=== PATIENT | female | born 1950 | race Caucasian/White ===

== ENCOUNTER → 2019-07-10 11:04 | Outpatient (CLI) | payer MEDICARE, MEDICAID, SELFPAY ==
--- NOTE | 2019-07-10 | DI.MRI.S_ITS ---
PROCEDURE: MR HIP LT WO CON INDICATIONS: Pain in left hip TECHNIQUE: Noncontrast coronal T1 spin echo and STIR through the bony pelvis. Coronal and axial T2 fast spin echo with fat saturation, sagittal T1 spin echo, and oblique axial T2 fast spin echo with fat saturation through the hip. COMPARISON: [facility] Outside Film, RG, PELVIS W/LAT HIP LT, 01/24/2019, 9:09. FINDINGS: Image quality: Diagnostic. Bones and joints: There is no acute fracture, dislocation, suspicious osseous lesion, or evidence to suggest avascular necrosis involving the left hip. The alpha angle of the left femoral head measures less than 55?. There are moderate to severe degenerative changes of the left hip with prominent thinning of the hyaline articular cartilage along the superior margin of the joint space and multiple moderate to large chronic appearing full-thickness cartilaginous defects of the superior acetabulum and superior femoral head. Underlying degenerative/reactive marrow edema is present with areas of degenerative cystic change noted within the superior acetabulum. There is a large left hip joint effusion with mild associated synovial thickening/hypertrophy. The remainder of the imaged bony structures of the pelvis demonstrate no acute fractures or suspicious osseous lesions. Mild to moderate degenerative changes involving other pelvic drains are present. Labrum: Evaluation of the left acetabular labrum is suboptimal without intra-articular contrast. However, there appears to be degenerative superior labral tearing. No large paralabral cysts are evident. Tendons and ligaments: The ligamentum teres appears to be torn. This may be chronic. There is mild increased signal involving the distal gluteus minimus tendon. The distal gluteus medius tendon is unremarkable. There is thickening of the greater trochanteric bursa. The proximal hamstrings tendons in the distal iliopsoas tendons are intact. There is increased signal evident involving the proximal adductor muscles. Soft tissues: Visualized muscles demonstrate normal bulk and internal signal. Quadratus femoris muscle demonstrates no internal edema to suggest ischiofemoral impingement. The proximal sciatic neurovascular bundle appears normal adjacent to the hamstring tendons. No free pelvic fluid. Bladder wall thickness is normal. Genitourinary structures and bowel loops appear normal where visualized. IMPRESSION: 1. Moderate to severe degenerative changes of the left hip. 2. Degenerative superior labral tearing. 3. Large left hip joint effusion. Associated synovial hypertrophy may be related to chronic degenerative changes. A superimposed infectious or inflammatory synovial process cannot be completely excluded. 4. Mild distal left gluteus minimus tendinopathy. 5. Ligamentum teres tear probably is chronic. 6. Strains involving the adductor muscles at the pubic origin. Dictated by: Yovany Gillespie M.D. on 07/10/2019 at 13:55 Approved by: Yovany Gillespie M.D. on 07/10/2019 at 14:00
== END ==
PROVIDERS: Family Provider Nurse Practitioner; PCP Nurse Practitioner; Referring Provider Orthopaedic Surgery; Visit Provider Orthopaedic Surgery
DX: M25.552 Pain in left hip (principal); S73.192A Other sprain of left hip, initial encounter; S76.012A Strain of muscle, fascia and tendon of left hip, initial encounter; M25.452 Effusion, left hip
CPT/HCPCS: 73721

== ENCOUNTER → 2019-08-04 11:17 | Outpatient (CLI) | payer MEDICARE, MEDICAID, SELFPAY ==
[2019-08-04 12:20] LABS: Appearance Urine UA CLEAR; Bilirubin Urine UA NEGATIVE (NEGATIVE); Color Urine UA YELLOW; Glucose Urine UA NEGATIVE (Negative); Ketones Urine UA NEGATIVE (NEGATIVE); Leukocyte Esterase Urine UA NEGATIVE (NEGATIVE); Nitrite Urine UA NEGATIVE (Negative); Occult Blood Urine UA TRACE-INTACT (Negative); Protein Urine UA NEGATIVE (Negative); Specific Gravity Urine UA 1.025 (1.000-1.035); Urobilinogen Urine UA 0.2 E.U./dL (0.2)
[2019-08-04 12:23] LABS: Add Manual Diff / Slide Review NO; Basophils Absolute Auto 0 /uL (0-100); Basophils Percent Auto 0.3 % (0-2); Eosinophils Absolute Auto 200 /uL (0-450); Eosinophils Percent Auto 4.1 % (2-4); Hematocrit 40.5 % (36-46); Hemoglobin 13.7 g/dL (12.0-16.0); Lymphocytes Absolute Auto 1300 /uL (1100-4500); Mean Corpuscular HGB Conc 33.8 % (30-36); Mean Corpuscular Hemoglobin 32.4 PG (26-34); Mean Corpuscular Volume 95.9 fL (80-100); Monocytes Absolute Auto 500 /uL (0-900); Monocytes Percent Auto 8.7 % (3-14); Neutrophils Absolute Auto 3800 /uL (1500-7000); Neutrophils Percent Auto 63.9 % (50-75); Platelet Count 183 X10^3/uL (150-400); Red Blood Cell Count 4.22 X10^6/uL (4.0-5.2); Red Cell Distribution Width 13.5 % (11.6-14.8); White Blood Cell Count 5.9 X10^3/uL (4.5-11.0)
[2019-08-04 12:31] LABS: Hemoglobin A1C% w Est Avg Glu 5.5 % (4.0-6.0)
[2019-08-04 12:34] LABS: BUN Creatinine Ratio 33.3 (6-22); Blood Urea Nitrogen 23 mg/dL (7-17); Calcium 9.7 mg/dL (8.4-10.2); Carbon Dioxide 29 mmol/L (22-32); Chloride 106 mmol/L (98-107); Estimated Glomerular Filt Rate > 60.0 mL/min (>60); Glucose 87 mg/dL (80-110); HEMOLYSIS < 15 (0-50); Potassium 4.2 mmol/L (3.4-5.1); Sodium 140 mmol/L (137-145)
[2019-08-04 12:38] LABS: pH Urine UA 5.5 (4.5-8.0)
[2019-08-04 12:39] LABS: Bacteria Urine Occasional (0-1); Culture Indicated Urine Cult Not Indicated; RBC Urine 0-1/HPF (0-5/HPF); Squamous Epithelial Cell Urine 0-1 /HPF (0-5/HPF); WBC Urine 0-1/HPF (0-5/HPF)
== END ==
PROVIDERS: Family Provider Nurse Practitioner; PCP Nurse Practitioner; Referring Provider Orthopaedic Surgery; Visit Provider Orthopaedic Surgery
DX: Z01.818 Encounter for other preprocedural examination (principal); Z01.812 Encounter for preprocedural laboratory examination; R73.9 Hyperglycemia, unspecified; N39.0 Urinary tract infection, site not specified
CPT/HCPCS: 36415; 80048; 81001; 83036; 85025; 93005

== ENCOUNTER 2019-08-20 06:15 | Day surgery (SDC) | payer MEDICARE, MEDICAID, SELFPAY ==
[2019-08-18 13:49] VITALS: BMI 21.1
[2019-08-20] VITALS (15 sets, daily range): BP systolic 92–115; BP diastolic 42–74; PULSE 64–656; RESP 16–17; TEMP 35.5–36.6; O2SAT 94–99; BMI 21.1
--- NOTE | 2019-08-20 | DI.RAD.S_ITS ---
PROCEDURE: [id number] W PEL IF PERFORMED INDICATIONS: INNER OP IMAGES TECHNIQUE: 4 views of the left hip COMPARISON: [facility], , HIPBILAT [id number] W PEL IF PERFD, 06/02/2016, 8:37. FINDINGS: Spot fluoroscopic intraoperative images demonstrating left hip arthroplasty in expected alignment. Dictated by: Irving Lanza M.D. on 08/20/2019 at 11:59 Approved by: Irving Lanza M.D. on 08/20/2019 at 13:05
[2019-08-20] MEDS: VANCOMYCIN 1,000 MG/200 ML PIGGYBACK 200 MG IV (07:12)
--- NOTE | 2019-08-20 07:13 | SUR.PREOP ---
pt brought COVID results via her phone. The test was negative. Rocio Walters RN and Shani Fuller RN both checked phone and verified result.
[2019-08-20] MEDS: LACTATED RINGERS 1,000 ML 42 ML IV ×4 (07:34→11:01)
--- NOTE | 2019-08-20 07:44 | PM.PREOP ---
Pre-operative Note COVID-19 COVID-19 status: Negative Interval Note History & Physical reviewed/Exam performed by Physician: Yes Changes to H&P: No
--- NOTE | 2019-08-20 07:45 | P.OP_ITS ---
Operative Date/Time/Diagnoses Date of procedure: 08/20/19 Time of procedure: 07:59 Pre-op diagnosis: left hip OA Post-op diagnosis: same Procedure & Clinicians Procedure: Left total hip arthroplasty anterior approach Same procedure as scheduled: Yes Indications: The patient has had progressively worsening left hip pain with radiographic changes consistent with arthritis. Non-operative management has failed and the patient has requested total hip replacement. The risks, benefits and alternatives to surgery were discussed with the patient prior to proceeding. Risks discussed included, but were not limited to, failure to relieve pain, leg length discrepancy, dislocation, stiffness, infection, nerve damage, deep venous thrombosis, pulmonary embolism, stroke, coma, heart attack, permanent paralysis and , as well as the potential need for eventual revision of the prosthetic. Surgeon: Nichole Santana Inspector Final Assembly Electrical: Amy Gomez Anesthesia Type: General and Spinal Operative Notes Findings: Severe left hip osteoarthritis, soft bone, adequate stability Closure Type: primary Specimen(s): none sent Prosthetic devices, grafts, tissues, transplants, or devices: Santana and Nephew 50 R3 cup, neutral poly liner, 32-3 femoral head Oxinium, size 4 standard offset anthology stem Estimated Blood Loss (mL): 500 Blood products transfused: none Procedure in detail: The patient was brought to the operating room. Patient was carefully positioned in the supine position. Time-out was performed and antibiotics were given. Anesthesia was induced. She was positioned in the on the table in order to allow hyperextension of the hip. The left lower extremity was prepped and draped in a standard sterile fashion. An anterior left hip incision was made 1 fingerbreadth lateral to the anterior superior iliac spine and extended distally towards the greater trochanter. Dissection was carried out through skin and subcutaneous tissues. The skin and subcutaneous tissues were carefully injected with Lidocaine with epi. Superficial hemostasis was achieved. The fascia over the tensor fascia tanisha was defined and incised with a knife. Two Allis clamps were used to grasp the fascia. Tensor fascia tanisha was retracted laterally. A gelpi retractor was placed. Dissection was carried out down along the neck. The circumflex vessels were carefully identified and cauterized with the Aqua Mantis. There was good visualization of the femoral neck. A Cobra was placed superior to the neck and the gluteus fibers were carefully stripped from that superior aspect of the capsule. A 2nd retractor was placed along the inferior aspect of the neck. The rectus insertion along the capsule was partially released. Capsule was carefully incised and released from the intertrochanteric line circumferentially superior to the mid sagittal line and inferiorly to the mid sagittal line until the lesser trochanter was palpable. A tag stitch was placed both in the superior and inferior limb of the capsular insertion. Along the acetabulum capsule was also released up to the mid sagittal 12:00 position. A portion of the labrum was resected. A saw was used to perform an osteotomy at the level of the intertrochanteric line and the junction of the superior femoral neck leaving approximately 1 finger breath of residual inferior neck above the lesser trochanter. A 2nd cut was made along the femoral neck at the base of the head and a napkin ring of neck was removed. Corkscrew was placed in the femoral head and the head was removed without difficulty. Retractors were then repositioned around the acetabulum. There was somewhat more bleeding than normal and I was meticulous about attempting to cauterize as much as possible with the Aquamantys. Residual labrum was resected and additional osteophytes were removed. A reamer that was 4 mm below the templated size was placed by hand in the acetabulum and it was reamed to centralize the acetabulum. It was then reamed up to 2 under the templated size and fluoroscopy was brought in to confirm the position of the reaming and depth of reaming. A trial cup was placed and noted that it was appropriately sized and fluoroscopy confirmed position and depth. The component was open and inserted without difficulty fluoroscopic imaging was used to confirm that the cup had been adequately seated and was well positioned. There was moderate bleeding from the base of the acetabulum. It was stabilized with a 6.5 mm screw. Neutral poly liner was placed. The cup was tested and noted to be stable. Attention was then directed to the femur. The femur was gently hyperextended additional capsular release was performed as needed in order to allow adequate visualization of the proximal femur with elevation of the femur. Patient was placed in a hyperextended slightly adducted position with maximum external rotation. Box osteotome was used to check for any residual neck as well as sclerotic bone along the trochanter. [place] pepper was placed in the femur. Additional broaching was performed. Canal finder was used to determine the alignment of the canal and position. Size 1 broach was placed. The canal was then appropriately broached up to the templated size as long as there was adequate stability of the broach and serial advancement of the broach without excessive impingement. Specific attention was directed at avoiding varus attempting to direct the distal aspect of the broach more anteriorly and avoiding excessive anteversion. Trial reduction showed acceptable range of motion, good stability, no posterior impingement, advent of leg length and appropriate lateral shuck. I also hyperflexed the hip and checked that there was no impingement anteriorly and there was good stability with flexion, adduction and internal rotation. Marcaine and Exparel were injected. The stem was placed without difficulty. Repeat trial reduction and x-ray showed acceptable overall position, length, and no evidence of the femoral fracture. Final head was placed. Wound was meticulously irrigated with normal saline. The hip was reduced and additional Exparel and Marcaine were injected. The capsule was closed with interrupted nonabsorbable sutures. The fascia of the tensor was closed with interrupted and running Vicryl. No drain was placed. Any tensor fascia tanisha muscle that appeared to be contused or injured which was a minimal amount was carefully resected. Capsule around the tensor was injected with Exparel and Marcaine. The skin was closed with barbed stitches for the subcutaneous tissue and skin. We also used surgical glue. The wound was dressed sterilely. Brief Betadine soak was also used and was meticulously irrigated with normal saline. Patient was transferred to recovery room in satisfactory condition. Complications: none Post-operative Condition: stable Disposition: Acute Care Plan for aftercare: The patient will be maintained on a standard total hip replacement protocol with weight bearing as tolerated and anterior hip precautions. The patient will receive Aspirin and sequential compression devices for DVT prophylaxis. The patient will be discharged home when safe for the home environment. For
--- NOTE | 2019-08-20 07:48 | DI.RAD.S_ITS ---
PROCEDURE: XR HIP W PEL IF DONE LT 2V INDICATIONS: left hip surgery TECHNIQUE: AP pelvis with lateral view(s) of the left hip(s). COMPARISON: [facility], , [id number] W PEL IF PERFORMED, 08/20/2019, 10:17. FINDINGS: Bones: No fractures or dislocations. Pelvic ring appears intact. No suspicious bony lesions. Left hip arthroplasty expected postoperative alignment Soft tissues: The visualized bowel gas pattern is normal. No suspicious soft tissue calcifications. Overlying postsurgical soft tissue changes. IMPRESSION: Expected postoperative appearance Dictated by: Irving Lanza M.D. on 08/20/2019 at 13:45 Approved by: Irving Lanza M.D. on 08/20/2019 at 13:46
[2019-08-20] MEDS: CEFAZOLIN 2 GM/100 ML FROZ.PIGGY IV ×2 (07:54→16:09)
[2019-08-20] MEDS: TRANEXAMIC ACID 1,000 MG VIAL 2000 MG INJ (08:20)
--- NOTE | 2019-08-20 08:37 | SUR.OPER ---
Supine on padded Pike table with bilateral legs secured in padded positioning boots and suspended in positioning spars, operative leg in traction per surgeon. Head on one pillow. Arm on non-operative side secured on padded armboard <90 degrees abduction. Arm on operative side padded and resting across chest then secured with tape over sheet. Padded perineal post in place per surgeon.
[2019-08-20] MEDS: SODIUM CHLORIDE IRRIG SOLUTION 250 ML, POVIDONE-IODINE SPONGE STICKS 1 APPLIC IRR (08:44)
[2019-08-20] MEDS: BUPIVACAINE 0.25% W/ EPI 30 ML VIAL 60 ML INJ (08:44)
[2019-08-20] MEDS: BUPIVACAINE LIPOSOME 266 MG/20 ML VIAL INJ (08:45)
[2019-08-20] MEDS: LACTATED RINGERS 1,000 ML 125 ML IV ×2 (12:23→21:34)
[2019-08-20] MEDS: IBUPROFEN 400 MG TABLET PO ×2 (12:24→21:36)
--- NOTE | 2019-08-20 12:35 | PC.ADMIT ---
[email or web address] Admission Note: The patient,Karina Díaz,68 y/o, was given written information regarding hospital policies, unit procedures and contact persons. Patient's smoking status: Former smoker. Vital Signs - 8 hr 08/20/19 06:50 08/20/19 11:15 08/20/19 11:20 Temperature 97.9 F 97.7 F Pulse Rate 75 95 H 86 Respiratory Rate 16 16 17 Blood Pressure 115/73 99/47 L 99/63 Pulse Oximetry 99 95 96 08/20/19 11:25 08/20/19 11:30 08/20/19 11:35 Temperature Pulse Rate 90 88 80 Respiratory Rate 16 16 16 Blood Pressure 97/59 L 95/52 L 98/45 L Pulse Oximetry 96 94 98 08/20/19 11:45 08/20/19 11:50 08/20/19 12:00 Temperature 95.9 F L Pulse Rate 78 656 H 71 Respiratory Rate 16 16 16 Blood Pressure 97/60 97/52 L 99/67 Pulse Oximetry 98 97 96 08/20/19 12:16 Temperature 95.9 F L Pulse Rate 71 Respiratory Rate 16 Blood Pressure 99/67 Pulse Oximetry 96 Patient is well oriented. Alert and conversant. Rates pain 2/10. Incision w/ aquacel drsg to L anterior hip CDI. Cont. pulse ox in place. Call light in reach.
--- NOTE | 2019-08-20 15:18 | PT.IIE ---
Current Diagnoses Unilateral primary osteoarthritis, left hip (08/20/19) Surgery Performed Operation Date: 08/20/19 07:45 Actual Procedures p Total Hip Arthroplasty/Anterior Approach(Left) - Nichole Santana MD Surgical History (Last Updated 08/18/19 @ 14:17 by Juliet Daniels, RN) History of carpal tunnel surgery of right wrist (Acute) Hx of appendectomy (Acute) Hx of dilation and curettage (Acute) Hx of hand surgery (Acute) Hx of tonsillectomy (Acute) Hx of tubal ligation (Acute) Medical History (Last Updated 08/18/19 @ 14:18 by Juliet Daniels, NELLY) Generalized headaches (Acute) Hypothyroid (Acute) Kidney stones (Acute) Osteoarthritis (Acute) Physical Therapy Inpatient Evaluation/Re-Eval M1 PT/OT-IP Prior Functional Status Start: 08/20/19 14:04 Freq: NEEDED Status: Active Protocol: Document 08/20/19 14:52 HH (Rec: 08/20/19 15:18 [email or web address]) Medical Review Prior Functional Status Medical History Reviewed Yes Diet/Fluid Consistency Regular Communication no deficits noted. able to make needs known Mobility and Gait Pt stated she used SPC occasionally for the past few months d/t increased hip pain, mostly after taking the first after prolonged sitting. Pt was very active and likes to do gardening work. She does has difficulty for car transfer while lifting her LLE into her car. Bending over also difficulty to her. She stated she usually leads with R LE for stair climbing Activities of Daily Living and IADL's independent for ADLs and IADLs Social History Household Members significant other,none Living Arrangements House Number of Floors (Floors) One Floor Number of Stairs To Enter/Railing? 1 LUNA without rail Home Environment High Toilet,Tub/Shower Home Equipment Front Wheel Walker,Straight Cane,Raised Toilet Seat w/ Armrests,Tub Transfer Bench, Hand Held Shower,Processing Manager Employment Status Retired Additional Social History Comment Pt lives alone in [place] whose significant other Jesus comes to check in everyday but do not live there. Pt stated Jesus will be able to assist anytime. Her coop complex also has neighbors who can assist pt as needed. M2 PT-IP Current Condition Start: 08/20/19 14:04 Freq: NEEDED Status: Active Protocol: Document 08/20/19 14:52 (Rec: 08/20/19 15:18 [email or web address]) Physical Therapy Current Condition Current Condition Evaluation Date 08/20/19 Treatment Diagnosis L KASIE (ant), difficulty in walking Onset Date 08/20/19 Precautions Anterior Hip Precautions No Hip Extension,No Hip External Rotation Weight Bearing Status Weight Bearing Status Weight Bear as Tolerated M3 PT-IP Subjective Start: 08/20/19 14:04 Freq: NEEDED Status: Active Protocol: Document 08/20/19 14:52 (Rec: 08/20/19 15:18 [email or web address]) Subjective Physical Therapy Visit Type Type Initial Evaluation Visit Start Time 14:15 Visit Stop Time 15:46 Total Visit Minutes 31 Number of TAX STAFF ACCOUNTANT Visits 0 Physical Therapy Visit Comments Patient Comments Pt agreed to mobilize with PT. No discomfort noted Patient Goals To return home next morning. Therapy Pain Assessment Pain Present Pain Present Denied Pain M4 PT-IP Mobility and Gait Start: 08/20/19 14:04 Freq: NEEDED Status: Active Protocol: Document 08/20/19 14:52 (Rec: 08/20/19 15:18 [email or web address]) PT-Bed Mobility Assessment Supine to Sit Supine to Sit Independent Scooting Scooting to Edge of Bed Independent PT-Transfer Assessment Sit to and From Stand Sit to and from Stand Standby Assistance,Use of Upper Extremities Equipment Transfer Assistive Device Bed Rail,Gait Belt,Front Wheeled Walker Orthotic/Prosthetic Devices or Brace: No Transfers Transfer Destination Bed,Chair Transfer Technique amb with FWW Transfer Ability Level of Assist Standby Assistance,Use of Upper Extremities Comments Mobility Comments Pt was in bed upon PT arrival. BP at 92/42 HR 70. Denies any discomfort but numbness at L buttock. Able to recall 2/2 post op precautions. Pt was able to complete supine to long sit independently and SLR to pivot her L LE towards EOB . She then stood up from bedside with FWW SBA. She initially practiced lateral weight shift and no discomfort noted. Pt proceed to gait training in hallway. There's a mild steppage gait during LLE swing phase and pt stated I feel like my Left leg is longer . Pt was able to amb from room to end [facility] but she reports sweaty and hot sensation during mobility. Pt then returned to bedside chair with SBA FWW. She demonstrated safe transfer techniques with proper hand placements. BP at 113/72. She reports she is feeling better after a sitting break and felt she is ready to go home. Call light placed within reach. Updated Nursing Nereyda Gait Assessment Gait Gait Assistance Required: Standby Assistance Distance (Feet) 130 Able to Maintain Weight Bearing Status Yes During Gait Assistive Devices Assistive Device Gait Belt,Front Wheeled Walker Orthotic/Prosthetic Devices or Brace: No Gait Deviations General Gait Pattern Antalgic,Decreased Stride Length,Decreased Feet Clearance Factors Limiting Gait Function Factors Limiting Gait Function Decreased Activity Tolerance, Decreased Strength,Limited Range of Motion,Pain,Poor Balance,Poor Safety Awareness Comments Gait Comments see mobility comments Stair Climbing Assessment Comments Stair Climbing Comments did not assess. Pt was able to perform marching in place and understand leading with RLE for stair climbing. PT-Balance Assessment Sitting Balance and Reactions Static Sitting Balance Ability Normal Dynamic Sitting Balance Ability Good Standing Balance and Reactions Static Standing Balance Ability Normal Dynamic Standing Balance Ability Normal Device Used FWW M5 PT-IP Objective Assessments Start: 08/20/19 14:04 Freq: NEEDED Status: Active Protocol: Document 08/20/19 14:52 (Rec: 08/20/19 15:18 [email or web address]) Orientation Orientation/Cognition Level of Alertness Alert Orientation Name,Age,Birthday,Month,Date, Year,Day of Week,Place, Situation Language Function Ability No Deficits Noted Safety Awareness Understands Safety Issues Memory Description No Deficits Noted Gross Range of Motion Upper Extremity ROM Assessment Within Functional Limits Lower Extremity ROM Assessment Left Impaired Impairments educated pt for post op precautions to avoid hyperextension and ER Strength Upper Extremity Strength Assessment Within Functional Limits Lower Extremity Strength Assessment Left Impaired Hip 4-/5 Knee 5/5 Coordination Assessment Gross Coordination Gross Coordination WNL Sensation Assessment Sensation Gross Sensation Left LE Impaired Light Touch Intact Proprioception (Position) Intact Sensation Description Numbness Comments Sensation Comments numbness at L buttock upper thigh M6 PT-IP Treatment Start: 08/20/19 14:04 Freq: NEEDED Status: Active Protocol: Document 08/20/19 14:52 (Rec: 08/20/19 15:18 [email or web address]) Physical Therapy Treatment Exercises Exercises Ankle Pumps,Gluteal Sets,Quad Sets Education Education Provided Precautions,Weight Bearing Status,Post-Op Packet,Safety M7 PT-IP Assessment and Plan Start: 08/20/19 14:04 Freq: NEEDED Status: Active Protocol: Document 08/20/19 14:52 HH (Rec: 08/20/19 15:18 HH [email or web address]) PT Summary Assessment and Plan Potential Rehabilitation Potential Excellent Status of Condition at Evaluation Stable Summary Impairments Pain,ROM,Strength,Balance,Bed Mobility,Transfers,Gait, Activity Tolerance Assessment Summary This is a low complexity evaluation for this 68yo female s/p POD0 L KASIE. pt's PLOF: pt is a very active individual and did not need AD mostly but did have difficulty for bending over, car transfer and after prolonged sitting. But she is independent for all activitiies. Upon assessment, pt was able to amb approx 120 with FWW, transfer, bed mobility with SBA. She was able to recall all precautions clearly and demontrates safe mobility. She also has a supportive signficant other to assist as needed. Pt will be able to d/c home with outpatient PT to improve her mobility and strength. Goals Bed Mobility Goal Independent Transfer Goal Independent,Front Wheeled Walker Gait Goal Independent,Front Wheel Walker Gait Distance 200 Other Goals climb 1 step without rail Days to Meet Goals 1 Frequency of Treatment Frequency Of Treatment Twice a Day Treatment Plan Physical Therapy Treatment Plan Bed Mobility Training,Transfer Training,Gait Training, Therapeutic Exercise,Balance Retraining,Post Op Education, Discharge Planning,Hot or Cold Pack,Neuromuscular Re-ed Other Recommendations and Next Treatment check vitals Focus 1step climbing cont mobility training Recommendations To Nursing Amount of Assist Needed Independent Discharge Recommendations PT Discharge Recommendations Home with Assistance, Outpatient PT Transportation Needs at Discharge Private Vehicle
[2019-08-20] MEDS: ONDANSETRON 4 MG ODT PO (15:20)
--- NOTE | 2019-08-20 15:32 | PC.NURSE ---
Addendum entered by Azalia Yun R.N. 08/20/19 22:49: Pt able to void clear, pale yellow urine. Ambulates to bathroom with walker and standby assistance. Denies dizziness when up. Denies pain. Aquacel dressing to left anterior hip remains as per previous documentation @ shift beginning. Pt denies nausea. Taking oral meds and yogurt. BL calf scd's in place. Continuous pulse oximeter in place. Room air upper 90's. Addendum entered by Azalia Yun R.N. 08/20/19 18:29: Phone call from Dr. Santana to check on pt's status. Informed MD of pt's nausea/vomiting and no void post surgery. Pt does report sensation returning to periarea. Bladder scanned for 431 cc's. Discussed with pt last resort is catheterization which pt refuses. Per Dr. Santana okay to administer bolus of LR and this was done. Addendum entered by Azalia Yun R.N. 08/20/19 17:02: Pt not moving from recliner and has emesis. Administered xanax Original Note: Summoned by MIXED [employer]OP [employer] LIVESTOCK FARM WORKER @ shift change as pt has emesis following mobilizing to bedside commode to attempt to void. Pt attended to by this health underwriter. Pt denies nausea. Denies dizziness. States felt cold sweat followed immediately by emesis. Zofran ODT administered. Pt up in chair and prefers this over bed. Instructed not to attempt out of chair without calling for staff to assist and pt verbalizes understanding and agreement. Room air 98% per continuous pulse oximeter. No void and denies feeling need to void. States sensation returning to BL LE's, but states is still dull. Able to ankle wave and wiggle toes to lower extremities BL. Call light available. Ice to left anterior hip in place.
[2019-08-20] MEDS: ALPRAZolam 0.25 MG TABLET PO (16:57)
[2019-08-20] MEDS: LACTATED RINGERS 500 ML IV (18:33)
[2019-08-20] MEDS: DOCUSATE 100 MG CAPSULE PO (21:36)
[2019-08-20] MEDS: ACETAMINOPHEN 325 MG TABLET 650 MG PO (21:36)
[2019-08-20] MEDS: ASPIRIN EC 81 MG TABLET PO (21:36)
[2019-08-21] MEDS: CEFAZOLIN 2 GM/100 ML FROZ.PIGGY IV (00:16)
[2019-08-21] MEDS: IBUPROFEN 400 MG TABLET PO ×3 (00:16→08:19)
--- NOTE | 2019-08-21 00:32 | PC.NURSE ---
Addendum entered by Nguyen Perez R.N. 08/21/19 05:25: Up to bathroom with just SBA and walker. Washed face/hands and brushed teeth. IVF discontinued. Denies pain. Original Note: Patient is alert and oriented. Breath sounds CTA with RA sat of 97%. HRR. BP low at 86/46 but is asymptomatic and patient states she typically runs very low. Denies nausea. BT present and is passing flatus. Voiding without dysuria, frequency or urgency. Able to move self in bed and up to bathroom with walker and 1 assist/SBA; denies weakness. CMS is intact. Dressing to left anterior hip is intact with small spot of drainage noted and outlined. Wearing bilateral calf SCD's. Denies pain. Fall risk assessment is moderate; bed alarm is activated.
[2019-08-21 00:36] VITALS: BP 86/56; PULSE 62; RESP 18; TEMP 36.5; O2SAT 95
[2019-08-21 05:25] VITALS: BP 108/62; PULSE 67; RESP 16; TEMP 36.3; O2SAT 97
[2019-08-21 06:14] LABS: Hematocrit 29.4 % (36-46); Hemoglobin 10.1 g/dL (12.0-16.0)
[2019-08-21 07:36] VITALS: BP 113/76; PULSE 64; RESP 17; TEMP 36.5; O2SAT 99
[2019-08-21] MEDS: CHOLECALCIFEROL (VITAMIN D3) 1,000 UNIT TABLET 1000 UNIT PO (08:18)
[2019-08-21] MEDS: ACETAMINOPHEN 325 MG TABLET 650 MG PO (08:18)
[2019-08-21] MEDS: DOCUSATE 100 MG CAPSULE PO (08:18)
[2019-08-21] MEDS: ASPIRIN EC 81 MG TABLET PO (08:18)
[2019-08-21] MEDS: ALPRAZolam 0.25 MG TABLET PO (08:19)
--- NOTE | 2019-08-21 10:24 | CM.DANOTE ---
DCP: Case received, EMR reviewed. Did not meet with patient, for she already left so she could catch the ferry back to [place]. DCP assessment completed with information available in chart. Patient is a 68 year old female who admitted yesterday morning to the care of the orthopedic team. PCP: Dr. Huitron payer: confirmed: Medicare/Medicaid. Patient came to the hospital for a surgical procedure. She had left total hip arthroplasty. She has had history of osteoarthritis to her left hip. Patient already left the hospital, since she wanted to catch the early ferry. According to notes, she resides with her significant other, Jesus Olmstead. Patient is retired. P: Patient was discharged home with no needs. Latosha Jesus RN/Monologist
== END 2019-08-21 08:38 | disposition home or self-care (01) ==
LOC: OR 06:19 → AC 06:25
PROVIDERS: Admitting Provider Anesthesiology; Family Provider Nurse Practitioner; PCP Nurse Practitioner; Referring Provider Nurse Practitioner Family; Visit Provider Orthopaedic Surgery
PROC: (CPT 27130; principal; 2019-08-20 07:45)
DX: M16.12 Unilateral primary osteoarthritis, left hip (principal); M76.892 Other specified enthesopathies of left lower limb, excluding foot; E03.9 Hypothyroidism, unspecified
CPT/HCPCS: 27130; 36415; 73502; 73503; 76000; 85014; 85018; 97116; 97161; C1776; C9290; J0690; J1100; J2250; J2274; J2405; J2704; J2765; J3010

== ENCOUNTER → 2020-03-24 13:06 | Outpatient (CLI) | payer MEDICARE, MEDICAID, SELFPAY ==
[2019-08-20 12:22] VITALS: BMI 21.1
--- NOTE | 2020-03-24 | DI.MRI.S_ITS ---
PROCEDURE: MR LUMBAR SPINE WO CON INDICATIONS: Spondylolisthesis, lumbar region TECHNIQUE: Noncontrast sagittal T1 spin echo and T2 fast echo, sagittal STIR, axial T1 and T2 fast spin echo through the lumbar spine. In cases with scoliosis, additional coronal T2 fast spin echo may be performed. COMPARISON: [facility] [place], [place], XR LUMBAR SPINE FLEXION EXTENSION, 03/17/2020, 9:26. FINDINGS: Image quality: Excellent. Alignment and Curvature: There is mild L3-L4 anterolisthesis secondary to facet hypertrophy. Bone Marrow: Mild reactive endplate changes noted adjacent to the L2-L3, L4-L5 and L5-S1 discs. Small Schmorl's nodes noted in the inferior endplates of the L1 and L2-2 vertebral bodies in the superior endplate of the L3 vertebral body. No acute vertebral body compression fractures. Spinal Cord: Conus medullaris terminates at the L2 level. Visualized cord demonstrates normal signal and size. Paraspinous Soft Tissues: No paravertebral masses. T12-L1: Normal appearance. L1-L2: Loss of disc signal and slight loss of disc height. Mild, diffuse disc bulge. Mild narrowing of the central canal. No neural foraminal narrowing. No neural compression. L2-L3: Loss of disc signal and mild loss of disc height. Mild to moderate diffuse disc bulge. Wjjx-ov-zdonwmnf narrowing of the central canal. Mild bilateral neural foraminal narrowing. No neural compression. Fissure noted in the posterior annulus. L3-L4: Loss of disc signal and height. Mild, diffuse disc bulge. Severe bilateral facet hypertrophy. Moderate ligamentum flavum hypertrophy. Severe narrowing of the central canal with compression of the nerve roots of the cauda equina. Mild to moderate bilateral neural foraminal narrowing. Fissure noted in the posterior annulus. L4-L5: Loss of disc signal and height. Mild to moderate diffuse disc bulge. Mild bilateral facet hypertrophy. Moderate narrowing of the central canal. Jotq-fi-kscsyrmm right and moderate left neural foraminal narrowing. No neural compression. Fissure noted in the posterior annulus. L5-S1: Loss of disc signal and height. Mild, diffuse disc bulge. Mild bilateral facet hypertrophy. No central stenosis. Moderate bilateral neural foraminal narrowing. No neural compression. IMPRESSION: 1. Grade 1 L3-L4 degenerative spondylolisthesis. 2. Multilevel degenerative disc disease. 3. Multilevel facet arthropathy. 4. Severe L3-L4 central canal narrowing with compression of the nerve roots of the cauda equina. 5. No neural foraminal narrowing resulting in neural compression. 6. L2-L3, L3-L4 and L4-L5 disc annulus fissures. Dictated by: Radha Calles MD, PhD on 03/24/2020 at 13:14 Approved by: Radha Calles MD, PhD on 03/24/2020 at 13:18
== END ==
PROVIDERS: Family Provider Nurse Practitioner; PCP Nurse Practitioner Family; Referring Provider Orthopaedic Surgery; Visit Provider Orthopaedic Surgery
DX: M43.16 Spondylolisthesis, lumbar region (principal); M51.36 Other intervertebral disc degeneration, lumbar region; M51.37 Other intervertebral disc degeneration, lumbosacral region; M47.816 Spondylosis without myelopathy or radiculopathy, lumbar region; M47.817 Spondylosis without myelopathy or radiculopathy, lumbosacral region; M48.061 Spinal stenosis, lumbar region without neurogenic claudication; M48.07 Spinal stenosis, lumbosacral region
CPT/HCPCS: 72148

== ENCOUNTER → 2022-06-21 07:50 | Outpatient (CLI) | payer MEDICARE, MEDICAID, SELFPAY ==
[2019-08-20 12:22] VITALS: BMI 21.1
--- NOTE | 2022-06-21 | DI.MRI.S_ITS ---
PROCEDURE: MR LUMBAR SPINE WO CON INDICATIONS: Lumbar radiculopathy TECHNIQUE: Noncontrast sagittal T1 spin echo and T2 fast echo, sagittal STIR, and T2 fast spin echo through the lumbar spine. In cases with scoliosis, additional coronal T2 fast spin echo may be performed. COMPARISON: [facility], MR, MR LUMBAR SPINE WO CON, 03/24/2020, 13:13. FINDINGS: Image quality: Excellent. Alignment and Curvature: Unchanged alignment. Anterolisthesis of L3 on L4 measures 9 mm. Trace retrolisthesis of L4 on L5 and trace retrolisthesis of L5 on S1. Bone Marrow: Marrow is of normal overall signal. No acute vertebral body compression fractures. Spinal Cord: Conus medullaris terminates at the L2 level. Visualized cord demonstrates normal signal and size. Paraspinous Soft Tissues: No paravertebral masses. T12-L1: Normal appearance. L1-L2: Mild disc bulge. Mild facet hypertrophy. Findings unchanged. No canal stenosis or foraminal stenosis. L2-L3: No significant change. Disc bulge. Mild facet hypertrophy. Wpxb-zh-jhufrmkf canal stenosis. No significant foraminal stenosis. L3-L4: Slight interval progression. Exuberant facet hypertrophy. Anterolisthesis of L3 on L4. Severe canal stenosis. Cagt-of-gajsznbz bilateral foraminal narrowing. L4-L5: Mild interval progression. Diffuse disc bulge. Somewhat prominent facet hypertrophy. Moderate canal stenosis. Tchh-zm-hiokbfel bilateral foraminal narrowing. L5-S1: Unchanged. Severe disc height loss. Posterior disc post osteophyte. Facet hypertrophy. No canal stenosis. Moderate bilateral foraminal narrowing. IMPRESSION: 1. Multilevel underlying facet arthropathy. 2. Slight interval progression at L3-L4 and L4-L5. There is severe canal stenosis at L3-L4 and moderate canal stenosis at L4-L5. 3. There is also sted-sr-yfjkohwh canal stenosis at L2-L3. 4. Multilevel foraminal narrowing as described above. Dictated by: Tomas Mckeon M.D. on 06/21/2022 at 10:16 Approved by: Tomas Mckeon M.D. on 06/21/2022 at 10:22
== END ==
PROVIDERS: Family Provider Nurse Practitioner; PCP Nurse Practitioner Family; Referring Provider Surgery; Visit Provider Surgery
DX: M47.26 Other spondylosis with radiculopathy, lumbar region (principal); M47.27 Other spondylosis with radiculopathy, lumbosacral region; M48.061 Spinal stenosis, lumbar region without neurogenic claudication; M48.07 Spinal stenosis, lumbosacral region
CPT/HCPCS: 72148

== ENCOUNTER → 2022-07-11 08:38 | Outpatient (CLI) | payer MEDICARE, MEDICAID, SELFPAY ==
[2019-08-20 12:22] VITALS: BMI 21.1
[2022-07-11 10:18] LABS: Add Manual Diff / Slide Review NO; Basophils Absolute Auto 0 /uL (0-100); Basophils Percent Auto 0.5 % (0-2); Eosinophils Absolute Auto 200 /uL (0-450); Eosinophils Percent Auto 3.9 % (2-4); Hematocrit 42.2 % (36-46); Hemoglobin 14.1 g/dL (12.0-16.0); Lymphocytes Absolute Auto 1300 /uL (1100-4500); Lymphocytes Percent Auto 24.5 % (25-40); Mean Corpuscular HGB Conc 33.5 % (30-36); Mean Corpuscular Hemoglobin 32.4 PG (26-34); Mean Corpuscular Volume 96.5 fL (80-100); Monocytes Absolute Auto 400 /uL (0-900); Monocytes Percent Auto 7.7 % (3-14); Neutrophils Absolute Auto 3300 /uL (1500-7000); Neutrophils Percent Auto 63.4 % (50-75); Platelet Count 176 X10^3/uL (150-400); Red Blood Cell Count 4.37 X10^6/uL (4.0-5.2); Red Cell Distribution Width 13.4 % (11.6-14.8); White Blood Cell Count 5.2 X10^3/uL (4.5-11.0)
[2022-07-11 10:39] LABS: Blood Urea Nitrogen 18 mg/dL (7-17); Calcium 9.5 mg/dL (8.4-10.2); Carbon Dioxide 29 mmol/L (22-32); Chloride 104 mmol/L (98-107); Estimated Glomerular Filt Rate > 60 mL/min (>60); Glucose 79 mg/dL (80-110); HEMOLYSIS < 15 (0-50); Potassium 4.2 mmol/L (3.4-5.1); Sodium 139 mmol/L (137-145)
== END ==
PROVIDERS: Family Provider Nurse Practitioner; PCP Nurse Practitioner Family; Referring Provider Orthopaedic Surgery Orthopaedic Surgery of the Spine; Visit Provider Orthopaedic Surgery Orthopaedic Surgery of the Spine
DX: Z01.818 Encounter for other preprocedural examination (principal); Z01.812 Encounter for preprocedural laboratory examination
CPT/HCPCS: 36415; 80048; 85025; 93005

== ENCOUNTER 2022-08-04 11:46 | Inpatient (IN) | payer MEDICARE, MEDICAID, SELFPAY ==
[2019-08-20 12:22] VITALS: BMI 21.1
[2022-07-31 12:39] VITALS: BMI 20.2
[2022-08-04] VITALS (12 sets, daily range): BP systolic 100–129; BP diastolic 46–81; PULSE 56–88; RESP 10–18; TEMP 36–36.8; O2SAT 95–100; BMI 20.2
[2022-08-04] MEDS: LACTATED RINGERS 1,000 ML 100 ML IV ×3 (12:42→14:51)
--- NOTE | 2022-08-04 13:07 | PM.PREOP ---
Pre-operative Note COVID-19 Criteria for continued procedure: Expected advancement of disease process, Possibility delay results in more complex future surgery or treatment, Increased loss of function, Continuing or worsening of significant or severe pain, Deterioration of the patient's condition or overall health and Delay expected to result in less-positive ultimate med/surg outcome Interval Note History & Physical reviewed/Exam performed by Physician: Yes Changes to H&P: No
[2022-08-04] MEDS: CEFAZOLIN 2 GM/100 ML PREMIX 100 ML IV ×2 (13:55→21:29)
--- NOTE | 2022-08-04 14:30 | SUR.OPER ---
Prone on spine table, head in foam head support, padded chest and pelvic supports, gel pad at knees, lower legs supported by pillows; nipples, genitalia and toes free of pressure, arms secured on foam padded arm boards at <90 degrees abduction. Tape over blanket at thigh secured to table.
[2022-08-04] MEDS: BUPIVACAINE 0.25% (PF) 30 ML, EPINEPHrine 0.15 MG INJ (14:54)
[2022-08-04] MEDS: BUPIVACAINE LIPOSOME 266 MG/20 ML VIAL INJ (15:00)
--- NOTE | 2022-08-04 16:08 | DI.RAD.S_ITS ---
PROCEDURE: XR LUMBAR SPINE 2-3V INDICATIONS: L3-4 TLIF TECHNIQUE: 2 views of the lumbar spine were acquired. COMPARISON: None. FINDINGS: Fluoroscopic guidance utilized for an L3-4 interbody and posterior surgical fusion. No hardware complication. IMPRESSION: Fluoroscopic guidance. Dictated by: Santana Roman M.D. on 08/04/2022 at 16:20 Approved by: Santana Roman M.D. on 08/04/2022 at 16:21
--- NOTE | 2022-08-04 16:08 | P.OP_ITS ---
Operative Date/Time/Diagnoses Date of procedure: 08/04/22 Time of procedure: 13:30 Pre-op diagnosis: 1. L3-4 spinal stenosis with neurogenic claudication 2. L3-4 spondylolisthesis Post-op diagnosis: same Procedure & Clinicians Procedure: 1. L3-4 Postero-lateral and posterior interbody fusion 2. L3-4 interbody cage placement. 3. L3-4 decompressive laminectomy with bilateral facetecomies 4. L3-4 Posterior non-segmental instrumentation 5. Cooper of bone marrow from iliac crest 6. Utilization of microsurgical technique and operating microscope Same procedure as scheduled: Yes Indications: Patient has been having chronic back pain and worsening lumbar radiculopathy and symptoms of neurogenic claudication. Patient failed multiple conservative management with worsening pain weakness and numbness in her lower extremity. Patient has been having difficulty performing activity of daily living. After discussing risks benefits of treatment options, patient elected proceed with surgery. Surgeon: Ashley Armijo Fish Boning Machine Feeder: Sam Cartwright Click Yes if Unassisted: No Anesthesia Type: General Operative Notes Closure Type: primary Specimen(s): none sent Prosthetic devices, grafts, tissues, transplants, or devices: Globus revolve screws, Rise cage Estimated Blood Loss (mL): 50 Blood products transfused: none Procedure in detail: Patient was seen in the preoperative area. Risks and benefits of the surgery was discussed with the patient. Informed consent was obtained from the patient and placed in the chart. Surgical site was marked. Patient was taken to the operative room. General anesthesia was administered. Prophylactic antibiotic was given to the patient less than 30 min before the incision was made. Patient was placed into a prone position on the Marshall table. Patient's back was then prepped and draped in the sterile fashion. Time-out was performed at this time. Using AP and lateral C-arm imaging the interval between L3-4 was identified and marked on patient's back. A 2 inch incision 2 in from midline was made on the left side first. The fascia was incised in line with skin incision. Globus MARS retractors was placed inside the incision and docked onto the L3 lamina. Using microsurgical technique and operating microscope, a L3 laminectomy and L3-4 facetectomy was performed using a Kerrison rongeur. The laminectomy and facetectomy was performed in order to decompress patient's cauda equina as well as the nerve roots exiting at the L3-4 level. The disc space at L3-4 was identified. And a total diskectomy was performed at L3-4 level. The endplates were decorticated using a rasp and shaver. The total diskectomy and decortication was performed at L3-4 level in order to to accomplish a L3-4 fusion. The local bone from the laminectomy and facetectomy was saved for local bone grafting. After the total diskectomy and decortication was completed, Globus Trifecta bone graft material was combined with local bone that was harvested earlier. At this time, a separate skin is incision was made over the iliac crest. A Jamshidi needle was inserted into the iliac crest through a separate skin incision. 5 cc of bone marrow aspiration was obtained through the separate skin incision using a Jamshidi needle from the iliac crest. The bone marrow aspiration was combined with local bone and theTrifecta bone grafting material. The bone grafting material was placed into the L3-4 interbody space along with a expandable cage. The cage was expanded to its maximum height using the torque limiting screwdriver. At this time a mirror image incision was made on the right side. The fascia was incised in line with the skin incision. Globus MARS retractor was inserted and docked onto the L3-4 posterolateral gutter. Using the power drill, posterior- lateral decortication was performed at L3-4 level until bleeding cortical bone was identified. The remaining bone grafting material was placed into the L3-4 posterior lateral gutter he order to accomplish posterolateral fusion at the L3- 4 level. Using the double C-arm technique, pedicle screws were placed into the L3-4 pedicles bilaterally. This was done by placing the Jamshidi needle into the pedicles, then placing the guidewires over the Jamshidi needle, and finally placing the cannulated screws over the guidewires bilaterally. After the pedicle screws were placed, 2 titanium rods was locked into the heads of the pedicle screws using locking caps and torque limiting screwdriver. After all the hardware was placed, and confirmed with AP and lateral C-arm imaging, the wound was then irrigated with sterile normal saline and packed with Ray-Unique gauze for 3 min to accomplish hemostasis. After the gauze was removed the deep fascia was closed with #1 Vicryl suture. The subcutaneous layer was closed with 2-0 Vicryl. The skin was closed with skin rajesh. Patient tolerated the procedure well. There were no complications. Complications: none Post-operative Condition: stable Disposition: PACU Plan for aftercare: Admit to inpatient hospital
[2022-08-04] MEDS: LORazepam 2 MG/ML INJ 0.5 MG IV (16:52)
[2022-08-04] MEDS: fentaNYL 100 MCG/2 ML INJ IV (16:53)
[2022-08-04] MEDS: hydrOXYzine pamoate 25 MG CAPSULE 50 MG PO (16:54)
[2022-08-04] MEDS: OXYCODONE IR 5 MG TABLET PO (16:54)
[2022-08-04] MEDS: LACTATED RINGERS 1,000 ML 125 ML IV (17:31)
--- NOTE | 2022-08-04 17:33 | PC.NURSE ---
Day shift: Pt in room from PACU at approx 1720. She is asleep and on her left side. Dressing is CDI. VS WNL. RA 100%. Spouse in room for support. Bed alarm is on and call light in reach.
[2022-08-04] MEDS: ONDANSETRON 4 MG/2 ML INJ IV (20:37)
[2022-08-04] MEDS: GABAPENTIN 600 MG TABLET PO (21:29)
[2022-08-04] MEDS: hydrOXYzine pamoate 25 MG CAPSULE PO (21:29)
[2022-08-04] MEDS: DOCUSATE 100 MG CAPSULE PO (21:29)
[2022-08-04] MEDS: SENNOSIDES 8.6 MG TABLET 17.2 MG PO (21:29)
[2022-08-04] MEDS: ACETAMINOPHEN 325 MG TABLET 650 MG PO (21:29)
[2022-08-04] MEDS: OXYCODONE IR 10 MG TABLET PO (22:47)
[2022-08-05] MEDS: HYDROMORPHONE 0.5 MG INJ IV ×2 (00:10→03:42)
[2022-08-05 00:33] VITALS: BP 103/61; PULSE 81; RESP 18; TEMP 36.3; O2SAT 100
--- NOTE | 2022-08-05 03:24 | PC.NURSE ---
Nightshift Pt was bladder scanned at 0000 and showed 625mL, Purwick was in place, Pt requested to give her some time to allow her to void. Pt was scanned at 0200 and showed to retain over 800mL, Straight cath was performed and 925mL was removed. Pt tolerated procedure well.
[2022-08-05] MEDS: LACTATED RINGERS 1,000 ML 125 ML IV ×2 (03:42→13:38)
[2022-08-05] MEDS: ONDANSETRON 4 MG/2 ML INJ IV ×2 (03:42→11:03)
[2022-08-05 03:47] VITALS: BP 108/52; PULSE 60; RESP 18; TEMP 36.8; O2SAT 99
[2022-08-05] MEDS: CEFAZOLIN 2 GM/100 ML PREMIX 100 ML IV (06:22)
[2022-08-05 08:16] VITALS: BP 102/52; PULSE 56; RESP 17; TEMP 36.8; O2SAT 97
[2022-08-05] MEDS: OXYCODONE IR 10 MG TABLET PO (08:20)
[2022-08-05] MEDS: hydrOXYzine pamoate 25 MG CAPSULE PO ×3 (08:20→20:20)
[2022-08-05] MEDS: ACETAMINOPHEN 325 MG TABLET 650 MG PO ×3 (08:21→20:20)
[2022-08-05] MEDS: GABAPENTIN 600 MG TABLET PO ×2 (08:22→20:20)
[2022-08-05] MEDS: DOCUSATE 100 MG CAPSULE PO ×2 (08:22→20:20)
--- NOTE | 2022-08-05 10:40 | PT.IIE ---
Current Diagnoses Spondylolisthesis, lumbar region (08/04/22) Spinal stenosis, lumbar region with neurogenic claudication (08/04/22) Surgery Performed Operation Date: 08/04/22 13:45 Actual Procedures p L3-4 TLIF - Ashley Armijo MD Surgical History (Last Reviewed 08/05/22 @ 10:47 by Sam Cartwright PA-C) History of carpal tunnel surgery of right wrist History of total left hip replacement (08/20/19) Hx of appendectomy Hx of dilation and curettage Hx of hand surgery Hx of tonsillectomy Hx of tubal ligation Medical History (Last Reviewed 08/05/22 @ 10:47 by Sam Cartwright PA-C) Anesthesia complication Generalized headaches Hypothyroid Kidney stones Osteoarthritis Physical Therapy Inpatient Evaluation/Re-Eval M1 PT/OT-IP Prior Functional Status Start: 08/05/22 12:24 Freq: NEEDED Status: Active Protocol: Document 08/05/22 10:40 AB (Rec: 08/05/22 12:37 AB [email or web address]) Medical Review Prior Functional Status Medical History Reviewed Yes Communication able to make needs known Mobility and Gait pt stated that she is independent with all mobilities and ambulation without AD Social History Household Members none Living Arrangements Apartment/Condo Number of Floors (Floors) One Floor Number of Stairs To Enter/Railing? 2 steps L wall + R post to enter the house Home Environment Standard Height Toilet,Tub/ Shower Home Equipment Straight Cane,Raised Toilet Seat w/Armrests,Hand Held Shower Additional Social History Comment pt stated that she has her significant other Jesus and friends that can stay and assist her if needed pt has a standard walker M2 PT-IP Current Condition Start: 08/05/22 12:24 Freq: NEEDED Status: Active Protocol: Document 08/05/22 10:40 AB (Rec: 08/05/22 12:37 AB [id number]) Physical Therapy Current Condition Current Condition Evaluation Date 08/05/22 Treatment Diagnosis s/p L3-4 fusion; difficulty in walking Onset Date 08/04/22 M3 PT-IP Subjective Start: 08/05/22 12:24 Freq: NEEDED Status: Active Protocol: Document 08/05/22 10:40 AB (Rec: 08/05/22 12:37 AB [email or web address]) Subjective Physical Therapy Visit Type Type Initial Evaluation Visit Start Time 10:40 Visit Stop Time 11:28 Total Visit Minutes 48 Number of BRAND ATTENDANT Visits 0 Physical Therapy Visit Comments Patient Comments c/o nausea but agreed to do PT Therapy Pain Assessment Pain When Pain Assessed At Rest Pain Present Pain Present Pain Reported Location back Intensity 4 Scale Used increases with mobility Pain Management Techniques Apply Cold,Distraction, Modification of Treatment,Re- positioning,Timing of Activity with Medications M4 PT-IP Mobility and Gait Start: 08/05/22 12:24 Freq: NEEDED Status: Active Protocol: Document 08/05/22 10:40 AB (Rec: 08/05/22 12:37 AB [email or web address]) PT-Bed Mobility Assessment Rolling Type of Rolling Log Rolling Level of Assist Standby Assistance Supine to Sit Supine to Sit Standby Assistance,Bedrails Sit to Supine Sit to Supine Standby Assistance,Bedrails PT-Transfer Assessment Sit to and From Stand Sit to and from Stand Moderate Assistance,Maximum Assistance,1 Person Assistance ,Use of Upper Extremities Equipment Transfer Assistive Device Gait Belt,Front Wheeled Walker Orthotic/Prosthetic Devices or Brace: No Transfers Transfer Destination Chair,Bedside Commode Transfer Technique Stand Step Pivot Transfer Ability Level of Assist Moderate Assistance,1 Person Assistance,Use of Upper Extremities Comments Mobility Comments pt c/o nausea and increase back pain but agreed to do PT. educated on back precautions and log roll bed mobility. BP: 113/52. completed supine to sit log roll using bed rail SBA max cues for techniques. pt c/o increase nausea with (+ ) emesis. nurse in room and gave pt nausea medication. pt requested to lie back down and completed sit to supine sBA and max cues. pt stated that she is still nauseated but is feeling a little better after meds and wants to try to get up again to use the toilet. completed log roll supine to sit SBA. sit to stand from the bed mod to max A and max cues and step transfers to bedside commode mod A and max cues using FWW. pt agreed to try to sit up on the chair. completed sit to stand from the bedside commode mod to max A and was able to take a few steps using FWW to transfer to the chair. positioned on the chair. ice pack provided. call light and table placed wtihin reach. Gait Assessment Comments Gait Comments able to take steps during transfers PT-Balance Assessment Sitting Balance and Reactions Static Sitting Balance Ability Normal Dynamic Sitting Balance Ability Good Standing Balance and Reactions Static Standing Balance Ability Fair Dynamic Standing Balance Ability Fair Device Used FWW M5 PT-IP Objective Assessments Start: 08/05/22 12:24 Freq: NEEDED Status: Active Protocol: Document 08/05/22 10:40 AB (Rec: 08/05/22 12:37 AB [email or web address]) Orientation Orientation/Cognition Level of Alertness Alert Orientation Name,Situation Language Function Ability No Deficits Noted Safety Awareness Decreased Safety Awareness Memory Description No Deficits Noted Gross Range of Motion Lower Extremity ROM Assessment Within Functional Limits Strength Lower Extremity Strength Assessment Within Functional Limits Muscle Tone Muscle Tone WNL Yes M6 PT-IP Treatment Start: 08/05/22 12:24 Freq: NEEDED Status: Active Protocol: Document 08/05/22 10:40 AB (Rec: 08/05/22 12:37 AB [email or web address]) Physical Therapy Treatment Education Education Provided Precautions,Weight Bearing Status,Post-Op Packet,Safety M7 PT-IP Assessment and Plan Start: 08/05/22 12:24 Freq: NEEDED Status: Active Protocol: Document 08/05/22 10:40 AB (Rec: 08/05/22 12:37 AB [email or web address]) PT Summary Assessment and Plan Potential Rehabilitation Potential Fair Status of Condition at Evaluation Evolving Summary Impairments Pain,ROM,Strength,Balance, Coordination,Sensation,Tone, Cognition,Bed Mobility, Transfers,Gait,Activity Tolerance Assessment Summary pt s/p L3-4 fusion POD 1 and with c/o increase pain and nausea affecting mobility. Pt most likely will be able to improve during hospital stay and mobilize better one pain and nause is well controlled. will continue acute PT to improve functional independence. pt plans to go home and will have her significant other or friends to assist her if needed. will continue to assess progress. d/c plan at this time: Home with assist and HHPT vs SNF depending on progress. Goals Bed Mobility Goal Independent Transfer Goal Independent,Front Wheeled Walker Gait Goal Independent,Front Wheel Walker Gait Distance 200 Other Goals up/down 2 steps using SPC SBA Days to Meet Goals 10 Frequency of Treatment Frequency Of Treatment Twice a Day Treatment Plan Physical Therapy Treatment Plan Bed Mobility Training,Transfer Training,Gait Training, Therapeutic Exercise,Balance Retraining,Post Op Education, Discharge Planning,Hot or Cold Pack,Neuromuscular Re-ed, Coordination Retraining,Manual Therapy Precautions Lumbar Precautions Log Roll,No Twisting,Limit Bending,Lifting Restriction of 10 lbs,Gait Belt above Incisional Area Recommendations To Nursing Amount of Assist Needed 1 Person Assist Discharge Recommendations PT Discharge Recommendations Home with 18/09 Assist Available,Home Health,SNF Rehab,Home vs SNF Other Discharge Recommendations FWW Transportation Needs at Discharge Wheelchair/Cabulance
--- NOTE | 2022-08-05 10:45 | PM.PNPO.1 ---
Subjective Subjective Date Patient Seen: 08/05/22 Time Patient Seen: 10:45 Interval history: Patient's pain is moderate. Patient feels very nauseous in his throwing up a couple times. No fever or chills. No shortness of breath or chest pain. Exam Vital Signs (past 8 hours): - 08/05/22 03:47 08/05/22 08:16 Temperature 98.3 F 98.3 F Pulse Rate 60 56 L Respiratory Rate 18 17 Blood Pressure 108/52 L 102/52 L Pulse Oximetry 99 97 Oxygen Flow Rate 2 0 Oxygen Delivery Method Nasal Cannula Oxygen Flow Rate 0 Narrative Exam Narrative: 71-year-old female resting comfortably in bed in no apparent distress. Dressing is Clean, dry, intact.. Motor functions intact distal bilateral lower extremities. Sensation grossly intact to light touch bilateral lower extremities. Const General: cooperative and comfortable Nutritional Appearance: average body habitus Orientation: alert Resp Effort & Inspection: normal respiratory effort and able to speak in complete sentences PFSH Medical History Anesthesia complication Generalized headaches Hypothyroid Kidney stones Osteoarthritis Surgical History History of carpal tunnel surgery of right wrist History of total left hip replacement (08/20/19) Hx of appendectomy Hx of dilation and curettage Hx of hand surgery Hx of tonsillectomy Hx of tubal ligation Social History household members: none Smoking Status: Former smoker alcohol intake: current Assessment & Plan Post-op Postoperative Procedures: Procedures Operation Date: 08/04/22 13:45 Actual Procedure Side Surgeon p L3-4 TLIF Ashley Armijo MD Postoperative day: 1 Postoperative status: doing well and marginal pain control Postoperative plan: routine post-op care Postoperative plan narrative: Mobilize with physical therapy, limit bending, twisting, lifting Multimodal pain management Likely discharged home tomorrow Quality VTE Deep Vein Thrombosis/Pulmonary Embolism Present on Admission: No
--- NOTE | 2022-08-05 11:20 | CM.DANOTE ---
DCP Brief Assessment: Patient is a 71F that lives on [address]. Here following elective TLIF from 08.04.[address] Armijo. POST SECONDARY PROFESSIONAL team unable to do a full assessment due to patient vomiting. PCP: Sydnee Perez Payer: Medicare and Medicaid POST SECONDARY PROFESSIONAL reviewed EMR. Note from CEE [facility] recommended home tomorrow, . Waiting PT initial eval at this time. From nursing staff, patient actively vomiting and likely will d/c tomorrow, 08.06.22. H&P said back pain and leg weakness and pain that limits her abiliy to perform activity of daily living. From anesthesia assessment, patient lives alone and has friends to support. Plan: CM team will continue to follow closely. Waiting PT initial eval recommendation. From CEE, likely home tomorrow, 08.06. CARMELITA Dennis Discharge Planning/Care Management CM Discharge Assessment Start: 08/05/22 11:09 Freq: Status: Active Protocol: Document 08/05/22 11:10 (Rec: 08/05/22 11:14 [id number]) Discharge Planning Assessment Assigned Non Destructive Testing Technician CARMELITA Dennis DPOA/Assigned Designee Name Jesus Olmstead (other) Contact Information [phone] Advance Directives? No History Provided By Medical Record Prior Living Arrangements Apartment/Condo Household Members none Comment H&P said back pain and leg weakness and pain that limits her abiliy to perform activity of daily living. Comment waiting on PT eval Discharge Plan Home Transportation Arrangement significant other Referrals Initiated None needed Whiteboard Updated in Patient Room with No name and ext. # of Non Destructive Testing Technician Review Status In Process Next Review Type Continued Stay Review Pre-Anesthesia Assessment Start: 07/31/22 12:39 Freq: Status: Complete Protocol: Document 07/31/22 12:39 CAB (Rec: 07/31/22 13:18 CAB [id number]) Pre-Anesthesia Assessment Preferred Name Karina Patient Information Reviewed Via Phone Assessment Diagnostic Results BMP/CMP,CBC,EKG Comment Labs/EKG @ 07/11/22 Primary Care Provider Sydnee Perez Seen Specialist in Last 12 Months Yes Specialist Seen Orthopedist Primary Language Bahamian Preferred Language Bahamian Safe And Vault Mechanic Required No Height 170.18 cm Weight 58.513 kg Body Mass Index (BMI) 20.2 Hearing Ability Normal Visual Assist Magnifying Glass Dentition Type Teeth, Natural Present,Teeth, Missing Barriers to Learning None Hx Anesthesia Reactions Yes: PONV Hx Family Anesthesia Reaction Yes: My mother couldn't tolerate anesthesia-PONV Hx Malignant Hyperthermia No Hx Blood Transfusions No Anesthesia Review Requested No Pouncer No alcohol intake current alcohol intake frequency a few times a month Smoking Status Former smoker how long ago did patient quit smoking Quit approx 18 years ago Substance Use Type marijuana Comment Advised not to smoke marijuana 24 hours prior Pain Present Pain Reported Musculoskeletal Symptoms Abnormal Gait,Back Pain, Difficulty Walking,Radiating Pain into Limb History of Falling (Recent or History of No ) Patient is completely paralyzed or No completely immobile Mental Status Oriented to own ability Is patient on oxygen? No Does patient have SR/SOB No Hx Sleep Apnea No Currently Taking a Beta Solomon No Can You Climb a Flight of Stairs Without Yes SOB Hx Chest Pain No Hx SOB No Hx Syncope or Dizziness No Anti-Coagulant Therapy No Has a Premises Technician No Cardiac Testing No Hx Pacemaker/ICD No Pacemaker Rep Required? No Cardiac Clearance Received Not Applicable Diet Type At Home Regular,Ketogenic Dysphagia No Gastrointestinal Symptoms None Chronic UTI No Bladder Pattern Incontinent,Incontinent, Stress Urinary Catheter Present No Hx Urinary Self Catheterization No Diabetes No Patient No Lactating No Hx Drug Resistant Organism No Presence of External or Internal Medical No Devices Have you had any close contact with No someone diagnosed with COVID-19? Received a COVID vaccine? Yes Received all doses? No Marital Status Single Lives With none Current Living Arrangements House Number of Floors (Floors) One Floor Support System Friend(s),Significant Other Does the Patient Have Assistance After Yes Surgery Patient Discharge Plan Description Return Home Comment Pt advised overnight length of stay per surgeon Feels Safe in Current Environment Yes Been Physically Hurt or Threatened By a No Person in Current Environment Do you have thoughts of harming yourself None or others? Are you currently considering suicide? No Do you have a plan to hurt yourself or No Plan others? Do You Have Any Spiritual Beliefs That No May Affect Your HC Choices? Do You Have Any Cultural Practices That No May Affect Your HC Choices? Comment Budda[employer] Who Can We Speak to About Patient's Care Family, friends Identifying Code for Release of Patient Declines to issue Information Health Care Proxy/Next of Kin Jesus Hairston) Health Care Proxy Emergency Contact Name Jesus (S.O.) Emergency Contact Advance Directives? No Power of Records Supervisor No PAC Instructions Durable medical equipment, Medications to take/avoid, Nasal antibiotic,No ETOH/ petroleum product on skin DOS, NPO,Pre-surgical wash,Sensory aids,Sturdy shoes/comfortable clothes,Do not bring valuables and remove jewelry
[2022-08-05 12:17] VITALS: BP 95/51; PULSE 70; RESP 18; TEMP 36.9; O2SAT 95
--- NOTE | 2022-08-05 15:31 | PT.IPTN ---
Current Diagnoses Spondylolisthesis, lumbar region (08/04/22) Spinal stenosis, lumbar region with neurogenic claudication (08/04/22) Surgery Performed Operation Date: 08/04/22 13:45 Actual Procedures p L3-4 TLIF - Ashley Armijo MD Physical Therapy Treatment Note M2 PT-IP Current Condition Start: 08/05/22 12:24 Freq: NEEDED Status: Active Protocol: Document 08/05/22 10:40 AB (Rec: 08/05/22 12:37 AB [id number]) Physical Therapy Current Condition Current Condition Evaluation Date 08/05/22 Treatment Diagnosis s/p L3-4 fusion; difficulty in walking Onset Date 08/04/22 M3 PT-IP Subjective Start: 08/05/22 12:24 Freq: NEEDED Status: Active Protocol: Document 08/05/22 15:53 TS (Rec: 08/05/22 16:14 TS [id number]) Subjective Physical Therapy Visit Type Type Treatment Note Visit Start Time 15:31 Visit Stop Time 15:50 Total Visit Minutes 19 Notes BP: 108/70 sitting EOB. Number of CAMP ASSISTANT Visits 1 Physical Therapy Visit Comments Patient Comments Pt reports not have nausea symptoms currently, agreeable to PT. Therapy Pain Assessment Pain When Pain Assessed At Rest Pain Present Pain Present Pain Reported M4 PT-IP Mobility and Gait Start: 08/05/22 12:24 Freq: NEEDED Status: Active Protocol: Document 08/05/22 15:53 TS (Rec: 08/05/22 16:14 TS [id number]) PT-Bed Mobility Assessment Rolling Type of Rolling Log Rolling Level of Assist Standby Assistance Supine to Sit Supine to Sit Standby Assistance,Bedrails Sit to Supine Sit to Supine Standby Assistance,Bedrails PT-Transfer Assessment Sit to and From Stand Sit to and from Stand Standby Assistance,1 Person Assistance,Use of Upper Extremities Equipment Transfer Assistive Device Gait Belt,Front Wheeled Walker Orthotic/Prosthetic Devices or Brace: No Comments Mobility Comments Pt found resting in bed, agreeable to PT. Logroll SBA with RUE handrail assist. Supine to sit SBA with BUE support, cues for LEs off EOB when coming into sitting up, BP 108/70 in sitting. She ambulated ~250' in hallway SBA w/FWW with step thru gait, no buckling or LOB. She performed stairs with bilateral rail support SBA x3 with slow/cautious steps. Sit to supine SBA, provided cues for sequencing of logroll. Pt was left in bed with call light nearby and all needs met . Gait Assessment Gait Gait Assistance Required: Contact Guard Assist Distance (Feet) 250 Able to Maintain Weight Bearing Status Yes During Gait Assistive Devices Assistive Device Gait Belt,Front Wheeled Walker Gait Deviations General Gait Pattern Narrow Based Gait Factors Limiting Gait Function Factors Limiting Gait Function Decreased Activity Tolerance, Decreased Strength,Pain Comments Gait Comments See mobility comments. Stair Climbing Assessment Evaluation Level of Assist On Stairs Standby Assistance Devices Stair Climbing Assistive Devices Left Railing,Right Railing Technique/Endurance Stair Climbing Direction Ascend and Descend Stair Climbing Technique Step to Step Number of Steps Climbed 3 Comments Stair Climbing Comments See mobility comments. PT-Balance Assessment Sitting Balance and Reactions Static Sitting Balance Ability Normal Dynamic Sitting Balance Ability Good Standing Balance and Reactions Static Standing Balance Ability Good Dynamic Standing Balance Ability Fair Device Used FWW M5 PT-IP Objective Assessments Start: 08/05/22 12:24 Freq: NEEDED Status: Active Protocol: Document 08/05/22 10:40 AB (Rec: 08/05/22 12:37 AB [id number]) Orientation Orientation/Cognition Level of Alertness Alert Orientation Name,Situation Language Function Ability No Deficits Noted Safety Awareness Decreased Safety Awareness Memory Description No Deficits Noted Gross Range of Motion Lower Extremity ROM Assessment Within Functional Limits Strength Lower Extremity Strength Assessment Within Functional Limits Muscle Tone Muscle Tone WNL Yes M6 PT-IP Treatment Start: 08/05/22 12:24 Freq: NEEDED Status: Active Protocol: Document 08/05/22 15:53 TS (Rec: 08/05/22 16:14 TS [id number]) Physical Therapy Treatment Education Education Provided Precautions,Weight Bearing Status,Post-Op Packet,Safety M7 PT-IP Assessment and Plan Start: 08/05/22 12:24 Freq: NEEDED Status: Active Protocol: Document 08/05/22 15:53 TS (Rec: 08/05/22 16:14 TS [id number]) PT Summary Assessment and Plan Potential Rehabilitation Potential Excellent Summary Impairments Pain,ROM,Strength,Balance, Coordination,Sensation,Tone, Cognition,Bed Mobility, Transfers,Gait,Activity Tolerance Progress Towards Goals Progressing Toward Goals Assessment Summary Pt progressed well with her mobility this session. She had no nausea symptoms and pain was minimal throughout. Bp was taken in sitting EOB, 108/70, pt denied any dizziness. Pt recalled 3/3 spinal precautions at start of session. She performed all bed mobility SBA with good carryover of logroll and supine to sit sequencing. She progressed her sit to stands to SBA with FWW, no retroleaning or LOB. She progressed her gait to ~250' SBA with FWW with a step thru gait and with good pacing. She performed stairs x3 with bilateral rails SBA with some caution, demonstrated no LOB. PT is recommending d/c home with assist from SO and friends who will be staying with her, she has FWW already at home. Goals Bed Mobility Goal Independent Transfer Goal Independent,Front Wheeled Walker Gait Goal Independent,Front Wheel Walker Gait Distance 200 Other Goals up/down 2 steps using SPC SBA Days to Meet Goals 10 Frequency of Treatment Frequency Of Treatment Twice a Day Treatment Plan Physical Therapy Treatment Plan Bed Mobility Training,Transfer Training,Gait Training, Therapeutic Exercise,Balance Retraining,Post Op Education, Discharge Planning,Hot or Cold Pack,Neuromuscular Re-ed, Coordination Retraining,Manual Therapy Other Recommendations and Next Treatment check vitals Focus 1step climbing cont mobility training Precautions Lumbar Precautions Log Roll,No Twisting,Limit Bending,Lifting Restriction of 10 lbs,Gait Belt above Incisional Area Recommendations To Nursing Amount of Assist Needed 1 Person Assist Discharge Recommendations PT Discharge Recommendations Home with Assistance Other Discharge Recommendations Pt has FWW at home. Transportation Needs at Discharge Private Vehicle
[2022-08-05 18:29] VITALS: BP 94/50; PULSE 83; RESP 18; TEMP 37.2; O2SAT 91
[2022-08-05] MEDS: SENNOSIDES 8.6 MG TABLET 17.2 MG PO (20:20)
[2022-08-06 00:19] VITALS: BP 110/63; PULSE 61; RESP 18; TEMP 36.9; O2SAT 96
[2022-08-06] MEDS: hydrOXYzine pamoate 25 MG CAPSULE PO ×2 (04:36→08:29)
[2022-08-06] MEDS: ACETAMINOPHEN 325 MG TABLET 650 MG PO ×2 (04:36→08:30)
[2022-08-06 04:38] VITALS: BP 117/62; PULSE 63; RESP 18; TEMP 37.2; O2SAT 94
[2022-08-06] MEDS: GABAPENTIN 600 MG TABLET PO (08:29)
[2022-08-06] MEDS: DOCUSATE 100 MG CAPSULE PO (08:29)
[2022-08-06 09:34] VITALS: BP 124/71; PULSE 60; RESP 18; TEMP 37.5; O2SAT 95
== END 2022-08-06 11:00 | disposition home or self-care (01) | DRG 455 ==
PROVIDERS: Admitting Provider Orthopaedic Surgery Orthopaedic Surgery of the Spine; Family Provider Nurse Practitioner; PCP Nurse Practitioner Family; Referring Provider Orthopaedic Surgery Orthopaedic Surgery of the Spine; Visit Provider Orthopaedic Surgery Orthopaedic Surgery of the Spine
PROC: 0SG00AJ Fusion of Lumbar Vertebral Joint with Interbody Fusion Device, Posterior Approach, Anterior Column, Open Approach (ICD-10-PCS; principal; 2022-08-04 13:45)
DX: M43.16 Spondylolisthesis, lumbar region (principal); M48.062 Spinal stenosis, lumbar region with neurogenic claudication; Z87.891 Personal history of nicotine dependence; Z20.822 Contact with and (suspected) exposure to COVID-19
CPT/HCPCS: 72100; 76000; 97116; 97162; 97530; C9290; J0171; J0690; J1100; J1170; J2060; J2250; J2405; J2704; J3010